=== PATIENT | female | born 1940 | race Caucasian/White ===

== ENCOUNTER → 2016-08-10 | Outpatient (CLI) | payer MEDICARE ==
[~2016-08-10] MED LIST: ANTIVERT25 MG PO; NKHM; ZOVIRAX800 MG PO
[2016-08-10 09:09] LABS: BASO % 0.2 % (0.0-1.0); EOS # 0.2 10*3/uL (0.0-0.4); EOS % 1.9 % (1.0-4.0); HEMOGLOBIN 14.1 g/dl (12.0-16.0); LYMPH # 2.2 10*3/uL (1.3-4.4); LYMPH % 26.2 % (27.0-41.0); MEAN CELL VOLUME 92.1 fl (81.0-99.0); MEAN CORPUSCULAR HGB 30.2 pg (27.0-31.0); MEAN CORPUSCULAR HGB CONC 32.8 g/dl (33.0-37.0); MEAN PLATELET VOLUME 11.8 fl (9.6-12.3); MONO # 0.4 10*3/uL (0.1-1.0); MONO % 4.5 % (3.0-9.0); NEUT # 5.5 10*3/uL (2.3-7.9); NEUT % 66.8 % (47.0-73.0); PLATELET COUNT AUTOMATED 73 10*3/uL (130-400); RED BLOOD COUNT 4.67 10*6/uL (4.10-5.10); RED CELL DISTRI WIDTH 14.6 % (0-14.5); WHITE BLOOD COUNT 8.3 10*3/uL (4.8-10.8)
== END | disposition home or self-care (01) ==
LOC: LAB 08:48
PROVIDERS: Internal Medicine Hematology & Oncology
DX: C18.9 Malignant neoplasm of colon, unspecified (principal); C55 Malignant neoplasm of uterus, part unspecified

== ENCOUNTER → 2016-11-08 | Outpatient (CLI) | payer MEDICARE ==
[2016-11-08 10:58] LABS: BASO % 0.4 % (0.0-1.0); EOS # 0.2 10*3/uL (0.0-0.4); HEMATOCRIT 41.7 % (37.0-47.0); LYMPH # 2.1 10*3/uL (1.3-4.4); LYMPH % 25.9 % (27.0-41.0); MEAN CELL VOLUME 93.3 fl (81.0-99.0); MEAN CORPUSCULAR HGB 31.3 pg (27.0-31.0); MEAN CORPUSCULAR HGB CONC 33.6 g/dl (33.0-37.0); MEAN PLATELET VOLUME 11.6 fl (9.6-12.3); MONO # 0.3 10*3/uL (0.1-1.0); MONO % 3.3 % (3.0-9.0); NEUT # 5.4 10*3/uL (2.3-7.9); PLATELET COUNT AUTOMATED 91 10*3/uL (130-400); RED BLOOD COUNT 4.47 10*6/uL (4.10-5.10); RED CELL DISTRI WIDTH 13.4 % (0-14.5); WHITE BLOOD COUNT 8.1 10*3/uL (4.8-10.8)
[2016-11-08 11:33] LABS: ALBUMIN 3.7 gm/dl (3.1-4.5); ALKALINE PHOSPHATASE 67 U/L (45-117); BILIRUBIN, TOTAL 0.7 mg/dl (0.2-1.0); BUN 9 mg/dl (7-24); CARBON DIOXIDE 29 mmol/L (21-32); CHLORIDE 106 mmol/L (98-107); EST GLOM FILT AFRICAN AMERICAN > 60 ml/min; GLUCOSE 91 mg/dL (65-99); POTASSIUM 4.2 mmol/L (3.5-5.1); SGOT/AST 12 IU/L (3-35); SGPT/ALT 22 U/L (12-78); SODIUM 144 mmol/L (136-145); TOTAL PROTEIN 6.6 gm/dL (6.4-8.2)
== END | disposition home or self-care (01) ==
LOC: LAB 10:35
PROVIDERS: Internal Medicine Hematology & Oncology
DX: C55 Malignant neoplasm of uterus, part unspecified (principal); C18.9 Malignant neoplasm of colon, unspecified; Z85.41 Personal history of malignant neoplasm of cervix uteri

== ENCOUNTER → 2017-02-04 | Outpatient (CLI) | payer MEDICARE ==
[2017-02-04 08:49] LABS: BASO % 0.1 % (0.0-1.0); EOS # 0.3 10*3/uL (0.0-0.4); EOS % 2.9 % (1.0-4.0); HEMOGLOBIN 13.6 g/dl (12.0-16.0); LYMPH # 1.9 10*3/uL (1.3-4.4); LYMPH % 21.6 % (27.0-41.0); MEAN CELL VOLUME 94.7 fl (81.0-99.0); MEAN CORPUSCULAR HGB 31.4 pg (27.0-31.0); MEAN CORPUSCULAR HGB CONC 33.2 g/dl (33.0-37.0); MONO # 0.3 10*3/uL (0.1-1.0); MONO % 3.9 % (3.0-9.0); NEUT # 6.1 10*3/uL (2.3-7.9); NEUT % 70.9 % (47.0-73.0); PLATELET COUNT AUTOMATED 79 10*3/uL (130-400); RED BLOOD COUNT 4.33 10*6/uL (4.10-5.10); RED CELL DISTRI WIDTH 14.3 % (0-14.5); WHITE BLOOD COUNT 8.6 10*3/uL (4.8-10.8)
== END | disposition home or self-care (01) ==
LOC: LAB 08:35
PROVIDERS: Internal Medicine Hematology & Oncology
DX: C18.9 Malignant neoplasm of colon, unspecified (principal); C55 Malignant neoplasm of uterus, part unspecified; C54.9 Malignant neoplasm of corpus uteri, unspecified; R53.81 Other malaise; R53.82 Chronic fatigue, unspecified; D69.59 Other secondary thrombocytopenia

== ENCOUNTER → 2017-03-01 | Outpatient (CLI) | payer MEDICARE | END | disposition home or self-care (01) | LOC: MAMMO 16:09 | DX: Z12.31 Encounter for screening mammogram for malignant neoplasm of breast (principal); C18.9 Malignant neoplasm of colon, unspecified; C55 Malignant neoplasm of uterus, part unspecified; R53.83 Other fatigue; R53.81 Other malaise; D69.59 Other secondary thrombocytopenia ==

== ENCOUNTER 2017-06-22 10:08 | Emergency (ER) | payer MEDICARE ==
[~2017-06-22] VITALS: Ht 152.4 cm; Wt 61.2 kg
[2017-06-22] MEDS ORDERED: VIBRAMYCIN100 MG PO (12:25)
[2017-06-22] MEDS ORDERED: DELTASONE20 M1 PO (12:25)
== END 2017-06-22 12:46 | disposition home or self-care (01) ==
LOC: ED 10:08
DX: J40 Bronchitis, not specified as acute or chronic (principal)

== ENCOUNTER → 2017-08-08 | Outpatient (CLI) | payer MEDICARE ==
[~2017-08-08] MED LIST changes: +DELTASONE20 M1 PO; +VIBRAMYCIN100 MG PO
[2017-08-08 10:32] LABS: BASO % 0.4 % (0.0-1.0); EOS # 0.2 10*3/uL (0.0-0.4); EOS % 3.3 % (1.0-4.0); HEMATOCRIT 39.9 % (37.0-47.0); HEMOGLOBIN 13.2 g/dl (12.0-16.0); LYMPH # 1.7 10*3/uL (1.3-4.4); LYMPH % 30.2 % (27.0-41.0); MEAN CELL VOLUME 93.4 fl (81.0-99.0); MEAN CORPUSCULAR HGB 30.9 pg (27.0-31.0); MEAN CORPUSCULAR HGB CONC 33.1 g/dl (33.0-37.0); MEAN PLATELET VOLUME 12.9 fl (9.6-12.3); MONO # 0.2 10*3/uL (0.1-1.0); MONO % 4.2 % (3.0-9.0); NEUT # 3.4 10*3/uL (2.3-7.9); NEUT % 61.4 % (47.0-73.0); PLATELET COUNT AUTOMATED 83 10*3/uL (130-400); RED BLOOD COUNT 4.27 10*6/uL (4.10-5.10); RED CELL DISTRI WIDTH 14.6 % (0-14.5); WHITE BLOOD COUNT 5.5 10*3/uL (4.8-10.8)
== END | disposition home or self-care (01) ==
LOC: LAB 09:59
PROVIDERS: Nurse Practitioner
DX: C18.9 Malignant neoplasm of colon, unspecified (principal); C55 Malignant neoplasm of uterus, part unspecified; D69.6 Thrombocytopenia, unspecified

== ENCOUNTER → 2017-12-19 | Outpatient (CLI) | payer MEDICARE ==
[2017-12-19 14:20] LABS: BASO % 0.3 % (0.0-1.0); EOS # 0.2 10*3/uL (0.0-0.4); EOS % 2.7 % (1.0-4.0); HEMATOCRIT 40.4 % (37.0-47.0); LYMPH # 1.5 10*3/uL (1.3-4.4); LYMPH % 25.7 % (27.0-41.0); MEAN CELL VOLUME 95.5 fl (81.0-99.0); MEAN CORPUSCULAR HGB 30.7 pg (27.0-31.0); MEAN CORPUSCULAR HGB CONC 32.2 g/dl (33.0-37.0); MEAN PLATELET VOLUME 13.3 fl (9.6-12.3); MONO # 0.3 10*3/uL (0.1-1.0); MONO % 4.9 % (3.0-9.0); NEUT # 3.9 10*3/uL (2.3-7.9); NEUT % 66.1 % (47.0-73.0); PLATELET COUNT AUTOMATED 86 10*3/uL (130-400); RED BLOOD COUNT 4.23 10*6/uL (4.10-5.10); RED CELL DISTRI WIDTH 14.3 % (0-14.5); WHITE BLOOD COUNT 5.9 10*3/uL (4.8-10.8)
== END | disposition home or self-care (01) ==
LOC: LAB 13:29
PROVIDERS: Internal Medicine Hematology & Oncology
DX: C18.9 Malignant neoplasm of colon, unspecified (principal); C55 Malignant neoplasm of uterus, part unspecified; D69.6 Thrombocytopenia, unspecified

== ENCOUNTER → 2018-03-02 | Outpatient (CLI) | payer MEDICARE ==
[~2018-03-02] MED LIST changes: +CEPHALEXIN500 M1 PO
[2018-03-02 11:12] LABS: BASO % 0.3 % (0.0-1.0); EOS # 0.3 10*3/uL (0.0-0.4); EOS % 2.7 % (1.0-4.0); HEMOGLOBIN 14.2 g/dl (12.0-16.0); LYMPH # 2.5 10*3/uL (1.3-4.4); LYMPH % 27.2 % (27.0-41.0); MEAN CORPUSCULAR HGB 31.7 pg (27.0-31.0); MEAN PLATELET VOLUME 11.7 fl (9.6-12.3); MONO # 0.4 10*3/uL (0.1-1.0); MONO % 3.8 % (3.0-9.0); NEUT % 65.7 % (47.0-73.0); PLATELET COUNT AUTOMATED 88 10*3/uL (130-400); RED BLOOD COUNT 4.48 10*6/uL (4.10-5.10); RED CELL DISTRI WIDTH 14.2 % (0-14.5); WHITE BLOOD COUNT 9.2 10*3/uL (4.8-10.8)
== END | disposition home or self-care (01) ==
LOC: LAB 09:45 → MAMMO 10:00
PROVIDERS: Internal Medicine Hematology & Oncology
DX: Z12.31 Encounter for screening mammogram for malignant neoplasm of breast (principal); C18.9 Malignant neoplasm of colon, unspecified; C55 Malignant neoplasm of uterus, part unspecified; D69.6 Thrombocytopenia, unspecified

== ENCOUNTER → 2018-03-27 | Outpatient (CLI) | payer MEDICARE | END | disposition home or self-care (01) | LOC: US 09:12 | DX: C18.9 Malignant neoplasm of colon, unspecified (principal); C55 Malignant neoplasm of uterus, part unspecified; I82.0 Budd-Chiari syndrome; D69.6 Thrombocytopenia, unspecified ==

== ENCOUNTER → 2018-03-31 | Outpatient (CLI) | payer MEDICARE | END | disposition home or self-care (01) | LOC: CT 08:47 | DX: D35.01 Benign neoplasm of right adrenal gland (principal); K86.89 Other specified diseases of pancreas; C18.9 Malignant neoplasm of colon, unspecified; D69.6 Thrombocytopenia, unspecified; R53.83 Other fatigue; Z90.710 Acquired absence of both cervix and uterus; Z85.41 Personal history of malignant neoplasm of cervix uteri ==

== ENCOUNTER → 2018-08-17 | Outpatient (CLI) | payer MEDICARE ==
[2018-08-17 11:34] LABS: BASO % 0.2 % (0.0-1.0); EOS # 0.3 10*3/uL (0.0-0.4); EOS % 2.9 % (1.0-4.0); HEMATOCRIT 47.3 % (37.0-47.0); HEMOGLOBIN 15.4 g/dl (12.0-16.0); LYMPH # 2.3 10*3/uL (1.3-4.4); LYMPH % 27.2 % (27.0-41.0); MEAN CELL VOLUME 96.3 fl (81.0-99.0); MEAN CORPUSCULAR HGB 31.4 pg (27.0-31.0); MEAN CORPUSCULAR HGB CONC 32.6 g/dl (33.0-37.0); MEAN PLATELET VOLUME 12.6 fl (9.6-12.3); MONO # 0.5 10*3/uL (0.1-1.0); MONO % 5.6 % (3.0-9.0); NEUT # 5.4 10*3/uL (2.3-7.9); NEUT % 63.6 % (47.0-73.0); PLATELET COUNT AUTOMATED 89 10*3/uL (130-400); RED BLOOD COUNT 4.91 10*6/uL (4.10-5.10); RED CELL DISTRI WIDTH 14.6 % (0-14.5); WHITE BLOOD COUNT 8.5 10*3/uL (4.8-10.8)
== END | disposition home or self-care (01) ==
LOC: LAB 11:19
PROVIDERS: Internal Medicine Hematology & Oncology
DX: C18.9 Malignant neoplasm of colon, unspecified (principal); C55 Malignant neoplasm of uterus, part unspecified; D69.6 Thrombocytopenia, unspecified

== ENCOUNTER → 2019-02-14 | Outpatient (CLI) | payer MEDICARE ==
[2019-02-14 11:50] LABS: BASO % 0.3 % (0.0-1.0); EOS # 0.3 10*3/uL (0.0-0.4); EOS % 3.9 % (1.0-4.0); HEMATOCRIT 41.8 % (37.0-47.0); HEMOGLOBIN 13.6 g/dl (12.0-16.0); LYMPH % 30.3 % (27.0-41.0); MEAN CELL VOLUME 97.7 fl (81.0-99.0); MEAN CORPUSCULAR HGB 31.8 pg (27.0-31.0); MEAN CORPUSCULAR HGB CONC 32.5 g/dl (33.0-37.0); MEAN PLATELET VOLUME 12.4 fl (9.6-12.3); MONO # 0.3 10*3/uL (0.1-1.0); MONO % 4.3 % (3.0-9.0); NEUT # 3.9 10*3/uL (2.3-7.9); NEUT % 60.9 % (47.0-73.0); PLATELET COUNT AUTOMATED 79 10*3/uL (130-400); RED BLOOD COUNT 4.28 10*6/uL (4.10-5.10); WHITE BLOOD COUNT 6.5 10*3/uL (4.8-10.8)
== END | disposition home or self-care (01) ==
LOC: LAB 11:30
PROVIDERS: Internal Medicine Hematology & Oncology
DX: C18.9 Malignant neoplasm of colon, unspecified (principal); C55 Malignant neoplasm of uterus, part unspecified; D69.6 Thrombocytopenia, unspecified

== ENCOUNTER → 2019-02-26 | Outpatient (CLI) | payer MEDICARE ==
[2019-02-26 11:57] LABS: BUN 9 mg/dl (7-24)
== END | disposition home or self-care (01) ==
LOC: LAB 11:17
PROVIDERS: Internal Medicine Hematology & Oncology
DX: C55 Malignant neoplasm of uterus, part unspecified (principal); D69.6 Thrombocytopenia, unspecified

== ENCOUNTER → 2019-03-01 | Outpatient (CLI) | payer MEDICARE | END | disposition home or self-care (01) | LOC: CT 09:00 | DX: C18.9 Malignant neoplasm of colon, unspecified (principal); C55 Malignant neoplasm of uterus, part unspecified; D69.6 Thrombocytopenia, unspecified; J90 Pleural effusion, not elsewhere classified; M47.816 Spondylosis without myelopathy or radiculopathy, lumbar region; I70.0 Atherosclerosis of aorta; M41.86 Other forms of scoliosis, lumbar region ==

== ENCOUNTER → 2019-04-10 | Outpatient (CLI) | payer MEDICARE | END | disposition home or self-care (01) | LOC: CARD 14:36 | DX: C18.9 Malignant neoplasm of colon, unspecified (principal); C55 Malignant neoplasm of uterus, part unspecified; D69.6 Thrombocytopenia, unspecified; Z79.899 Other long term (current) drug therapy ==

== ENCOUNTER → 2019-07-23 | Outpatient (CLI) | payer MEDICARE ==
[2019-07-23 11:29] LABS: BASO % 0.3 % (0.0-1.0); EOS # 0.2 10*3/uL (0.0-0.4); EOS % 3.5 % (1.0-4.0); HEMATOCRIT 44.9 % (37.0-47.0); HEMOGLOBIN 14.1 g/dl (12.0-16.0); LYMPH # 1.7 10*3/uL (1.3-4.4); LYMPH % 27.8 % (27.0-41.0); MEAN CELL VOLUME 97.4 fl (81.0-99.0); MEAN CORPUSCULAR HGB 30.6 pg (27.0-31.0); MEAN CORPUSCULAR HGB CONC 31.4 g/dl (33.0-37.0); MEAN PLATELET VOLUME 12.7 fl (9.6-12.3); MONO # 0.2 10*3/uL (0.1-1.0); MONO % 3.5 % (3.0-9.0); NEUT % 64.6 % (47.0-73.0); PLATELET COUNT AUTOMATED 86 10*3/uL (130-400); RED BLOOD COUNT 4.61 10*6/uL (4.10-5.10); RED CELL DISTRI WIDTH 14.5 % (0-14.5); WHITE BLOOD COUNT 6.3 10*3/uL (4.8-10.8)
== END | disposition home or self-care (01) ==
LOC: LAB 10:38 → MAMMO 11:30
PROVIDERS: Internal Medicine Hematology & Oncology
DX: Z12.31 Encounter for screening mammogram for malignant neoplasm of breast (principal); C18.9 Malignant neoplasm of colon, unspecified; C55 Malignant neoplasm of uterus, part unspecified; D69.6 Thrombocytopenia, unspecified

== ENCOUNTER → 2022-02-02 | Outpatient (CLI) | payer MEDICARE | END | disposition home or self-care (01) | LOC: RAD 11:34 | PROVIDERS: ATTEND Orthopaedic Surgery | DX: R22.42 Localized swelling, mass and lump, left lower limb (principal) ==

== ENCOUNTER 2024-09-13 16:01 | Inpatient (IN) | payer MEDICARE ==
[~2024-09-13] VITALS: Ht 152.4 cm; Wt 47.3 kg
[~2024-09-13 16:01] MED LIST changes: -DOXYCYCLINE HY100 M3 PO
[2024-09-13 16:24] VITALS: BP 127/60
[2024-09-13 16:57] LABS: HEMATOCRIT 39.8 % (37.0-47.0); MEAN CELL VOLUME 97.1 fl (81.0-99.0); MEAN CORPUSCULAR HGB 30.5 pg (27.0-31.0); MEAN CORPUSCULAR HGB CONC 31.4 g/dl (33.0-37.0); RED CELL DISTRI WIDTH 16.3 % (0-14.5); WHITE BLOOD COUNT 7.3 10*3/uL (4.8-10.8)
[2024-09-13 17:00] LABS: MANUAL DIFF REFLEX YES; PLATELET COUNT AUTOMATED 38 10*3/uL (130-400)
[2024-09-13 17:14] LABS: BUN 19 mg/dl (9-23); CHLORIDE 104 mmol/L (98-107); POTASSIUM 3.8 mmol/L (3.4-5.1)
[2024-09-13 17:18] LABS: OVALOCYTES FEW; PLATELET SUFFICIENCY LOW (NORMAL); TOTAL CELLS COUNTED 100 #CELLS
[2024-09-13] MEDS ORDERED: DOXYCYCLINE HY100 M3 PO (18:07)
[2024-09-13] MEDS ORDERED: BISACODYL 10 MG SUPP R PRN (18:25)
[2024-09-13] MEDS ORDERED: Ondansetron Hydrochloride 4 MG/2 ML VIAL IV PRN (18:25)
[2024-09-13] MEDS ORDERED: Magnesium Hydroxide 30 ML UDC PO PRN (18:25)
[2024-09-13] MEDS ORDERED: MORPHINE Sulfate 2 MG/ML SYR IV PRN (18:25)
[2024-09-13] MEDS ORDERED: BISACODYL 5 MG TAB PO PRN (18:25)
[2024-09-13] MEDS ORDERED: ACETAMINOPHEN 650 MG SUPP R PRN (18:25)
[2024-09-13] MEDS ORDERED: ACETAMINOPHEN 325 MG TAB PO PRN (18:25)
[2024-09-13] MEDS ORDERED: Acetaminophen/Hydrocodone 5 MG/325 MG TABLET PO PRN (18:25)
[2024-09-13 20:17] VITALS: BP 125/63
[2024-09-13 21:13] VITALS: BP 136/60
[2024-09-13] MEDS ORDERED: FUROSEMIDE 40 MG/4 ML VIAL IV SCH (21:30)
[2024-09-14] VITALS: BP 125/67
[2024-09-14 06:20] LABS: HEMATOCRIT 37.3 % (37.0-47.0); MEAN CELL VOLUME 97.4 fl (81.0-99.0); MEAN CORPUSCULAR HGB 31.1 pg (27.0-31.0); MEAN CORPUSCULAR HGB CONC 31.9 g/dl (33.0-37.0); PLATELET COUNT AUTOMATED 36 10*3/uL (130-400); RED BLOOD COUNT 3.83 10*6/uL (4.10-5.10); RED CELL DISTRI WIDTH 16.3 % (0-14.5); WHITE BLOOD COUNT 4.6 10*3/uL (4.8-10.8)
[2024-09-14 06:33] LABS: MANUAL DIFF REFLEX YES
[2024-09-14 07:02] LABS: BUN 19 mg/dl (9-23); CHLORIDE 101 mmol/L (98-107); CHOLESTEROL 103 mg/dL (<200); FREE T4 1.23 ng/dl (0.89-1.76); LDL CHOLESTEROL 55 mg/dL (9-159); POTASSIUM 4.4 mmol/L (3.4-5.1); TRIGLYCERIDES 64 mg/dl (<150)
[2024-09-14 08:00] VITALS: BP 131/63
[2024-09-14 08:20] LABS: OVALOCYTES FEW; PLATELET SUFFICIENCY LOW (NORMAL); ROULEAUX MODERATE; TOTAL CELLS COUNTED 100 #CELLS
[2024-09-14] MEDS ORDERED: Enoxaparin Sodium 40 MG/0.4 ML SYR SC SCH ×2 (10:00)
[2024-09-14] MEDS ORDERED: [UNRECOGNIZED DRUG - OTHER] ONE (10:21)
[2024-09-14] MEDS ORDERED: Lidocaine Hydrochloride 30 ML VIAL ONE (10:33)
[2024-09-14 12:00] VITALS: BP 123/52
[2024-09-14 13:40] LABS: BF LYMPHOCYTES 32 %; BF MACROPHAGES 59 %; BF MESOTHELIALS 2 %; BF NEUTROPHILS 7 %
[2024-09-14] MEDS ORDERED: Doxycycline Hyclate 100 MG in SODIUM CHLORIDE 0.9% 250 ML IV SCH (14:00)
[2024-09-14 16:00] VITALS: BP 114/50
[2024-09-14 20:00] VITALS: BP 132/57
[2024-09-14] MEDS ORDERED: GUAIFENESIN 600 MG TAB ER PO SCH (22:00)
[2024-09-15] VITALS: BP 104/52
[2024-09-15 05:34] LABS: BUN 22 mg/dl (9-23); CHLORIDE 100 mmol/L (98-107); POTASSIUM 3.8 mmol/L (3.4-5.1)
[2024-09-15 06:22] LABS: HEMATOCRIT 30.1 % (37.0-47.0); MEAN CELL VOLUME 98.4 fl (81.0-99.0); MEAN CORPUSCULAR HGB CONC 31.6 g/dl (33.0-37.0); RED BLOOD COUNT 3.06 10*6/uL (4.10-5.10); RED CELL DISTRI WIDTH 16.2 % (0-14.5); WHITE BLOOD COUNT 3.3 10*3/uL (4.8-10.8)
[2024-09-15 06:25] LABS: MANUAL DIFF REFLEX YES
[2024-09-15 06:26] LABS: PLATELET COUNT AUTOMATED 26 10*3/uL (130-400)
[2024-09-15 07:07] LABS: OVALOCYTES FEW; PLATELET SUFFICIENCY LOW (NORMAL); POLYCHROMASIA SLIGHT; TOTAL CELLS COUNTED 100 #CELLS
[2024-09-15 07:08] LABS: ROULEAUX SLIGHT
[2024-09-15 08:00] VITALS: BP 122/55
[2024-09-15] MEDS ORDERED: ASPIRIN ENTERIC COATED 81 MG TAB PO SCH (10:00)
[2024-09-15] MEDS ORDERED: CALCIUM CARBONATE/VITAMIN D3 500 MG/200 IU TABLET PO SCH (10:00)
[2024-09-15 12:00] VITALS: BP 122/57
[2024-09-15 16:00] VITALS: BP 118/62
[2024-09-15 20:00] VITALS: BP 128/53
[2024-09-16] VITALS: BP 108/45
[2024-09-16 06:22] LABS: HEMATOCRIT 31.2 % (37.0-47.0); MEAN CELL VOLUME 97.8 fl (81.0-99.0); MEAN CORPUSCULAR HGB CONC 31.7 g/dl (33.0-37.0); RED BLOOD COUNT 3.19 10*6/uL (4.10-5.10); RED CELL DISTRI WIDTH 16.1 % (0-14.5)
[2024-09-16 06:23] LABS: MANUAL DIFF REFLEX YES
[2024-09-16 06:25] LABS: PLATELET COUNT AUTOMATED 25 10*3/uL (130-400)
[2024-09-16 06:35] LABS: ALKALINE PHOSPHATASE 60 U/L (46-116); BUN 31 mg/dl (9-23); CHLORIDE 101 mmol/L (98-107); LDH 103 U/L (120-246); POTASSIUM 3.8 mmol/L (3.4-5.1); TOTAL PROTEIN 5.5 gm/dL (6.0-8.0)
[2024-09-16 06:42] LABS: SGPT/ALT < 7 U/L (5-49)
[2024-09-16 06:55] LABS: OVALOCYTES FEW; PLATELET SUFFICIENCY LOW (NORMAL); POLYCHROMASIA SLIGHT; TOTAL CELLS COUNTED 100 #CELLS
[2024-09-16 06:56] LABS: ROULEAUX SLIGHT
[2024-09-16 08:00] VITALS: BP 106/43
[2024-09-16 10:33] VITALS: BP 88/50
[2024-09-16 12:00] VITALS: BP 117/42
[2024-09-16 16:00] VITALS: BP 117/53
[2024-09-16 20:00] VITALS: BP 114/42
[2024-09-17] VITALS: BP 130/60
[2024-09-17 06:14] LABS: BUN 26 mg/dl (9-23); CHLORIDE 104 mmol/L (98-107); POTASSIUM 4.5 mmol/L (3.4-5.1)
[2024-09-17 06:23] LABS: HEMATOCRIT 30.3 % (37.0-47.0); MEAN CELL VOLUME 98.4 fl (81.0-99.0); MEAN CORPUSCULAR HGB 31.5 pg (27.0-31.0); RED BLOOD COUNT 3.08 10*6/uL (4.10-5.10); RED CELL DISTRI WIDTH 16.4 % (0-14.5); WHITE BLOOD COUNT 3.3 10*3/uL (4.8-10.8)
[2024-09-17 06:32] LABS: MANUAL DIFF REFLEX YES; PLATELET COUNT AUTOMATED 23 10*3/uL (130-400)
[2024-09-17 07:38] LABS: OVALOCYTES FEW; PLATELET SUFFICIENCY LOW (NORMAL); TOTAL CELLS COUNTED 100 #CELLS
[2024-09-17 08:00] VITALS: BP 102/50
[2024-09-17 09:45] VITALS: BP 128/60
[2024-09-17 12:00] VITALS: BP 118/50
[2024-09-17 16:00] VITALS: BP 111/53
[2024-09-17] MEDS ORDERED: METHYLPREDNISOLONE IV SCH (18:00)
[2024-09-17] MEDS ORDERED: methylPREDNISolone sod succ 125 MG VIAL IV SCH (18:00)
[2024-09-17 20:00] VITALS: BP 113/45
[2024-09-18] VITALS: BP 126/72
[2024-09-18 06:06] LABS: HEMATOCRIT 30.4 % (37.0-47.0); MEAN CELL VOLUME 97.4 fl (81.0-99.0); MEAN CORPUSCULAR HGB 30.8 pg (27.0-31.0); MEAN CORPUSCULAR HGB CONC 31.6 g/dl (33.0-37.0); RED BLOOD COUNT 3.12 10*6/uL (4.10-5.10); RED CELL DISTRI WIDTH 16.4 % (0-14.5); RETICULOCYTE % 1.16 % (0.50-2.50); WHITE BLOOD COUNT 2.8 10*3/uL (4.8-10.8)
[2024-09-18 06:56] LABS: ALKALINE PHOSPHATASE 63 U/L (46-116); BUN 29 mg/dl (9-23); CHLORIDE 105 mmol/L (98-107); LDH 96 U/L (120-246); POTASSIUM 4.8 mmol/L (3.4-5.1); SGPT/ALT 11 U/L (5-49); TOTAL PROTEIN 5.6 gm/dL (6.0-8.0)
[2024-09-18 07:19] LABS: MANUAL DIFF REFLEX YES; PLATELET COUNT AUTOMATED 22 10*3/uL (130-400)
[2024-09-18] MEDS ORDERED: CYANOCOBALAMIN 1,000 MCG/ML VIAL IM ONE (07:50)
[2024-09-18 08:00] VITALS: BP 144/52
[2024-09-18 08:07] LABS: HBsAG SCREEN Negative (Negative); HCV Ab Non Reactive (Non Reactive); HEP B CORE Ab, IgM Negative (Negative)
[2024-09-18 09:54] LABS: TOTAL CELLS COUNTED 100 #CELLS
[2024-09-18 09:55] LABS: PLATELET SUFFICIENCY LOW (NORMAL)
[2024-09-18 12:00] VITALS: BP 121/62
[2024-09-18 16:00] VITALS: BP 113/52
[2024-09-18] MEDS ORDERED: Water, Sterile 10 ML VIAL ONE (16:52)
[2024-09-18 20:00] VITALS: BP 125/52
[2024-09-19] VITALS: BP 114/54
[2024-09-19 07:20] LABS: HEMATOCRIT 29.4 % (37.0-47.0); MEAN CELL VOLUME 98.3 fl (81.0-99.0); MEAN CORPUSCULAR HGB 31.1 pg (27.0-31.0); MEAN CORPUSCULAR HGB CONC 31.6 g/dl (33.0-37.0); RED BLOOD COUNT 2.99 10*6/uL (4.10-5.10); RED CELL DISTRI WIDTH 16.6 % (0-14.5); WHITE BLOOD COUNT 5.6 10*3/uL (4.8-10.8)
[2024-09-19 07:46] LABS: BUN 34 mg/dl (9-23); CHLORIDE 104 mmol/L (98-107); POTASSIUM 4.3 mmol/L (3.4-5.1)
[2024-09-19 07:51] LABS: MANUAL DIFF REFLEX YES; PLATELET COUNT AUTOMATED 26 10*3/uL (130-400)
[2024-09-19 08:00] VITALS: BP 120/71; BP 160/85
[2024-09-19 08:16] LABS: TOTAL CELLS COUNTED 100 #CELLS
[2024-09-19 08:17] LABS: PLATELET SUFFICIENCY LOW (NORMAL)
[2024-09-19] MEDS ORDERED: MAGNESIUM SULFATE 50 ML IV ONE (09:10)
[2024-09-19] MEDS ORDERED: CYANOCOBALAMIN 1,000 MCG/ML VIAL IM SCH (10:00)
[2024-09-19 12:00] VITALS: BP 114/50
[2024-09-19 15:07] LABS: A/G RATIO 0.9 (0.7-1.7); ALBUMIN 2.5 g/dL (2.9-4.4); ALPHA-1-GLOBULIN 0.2 g/dL (0.0-0.4); ALPHA-2-GLOBULIN 0.3 g/dL (0.4-1.0); ANTI-DSDNA ANTIBODIES 1 IU/mL (0-9); BETA GLOBULIN 0.5 g/dL (0.7-1.3); GAMMA GLOBULIN 1.9 g/dL (0.4-1.8); GLOBULIN, TOTAL 2.8 g/dL (2.2-3.9)
[2024-09-19 16:00] VITALS: BP 125/55
[2024-09-19 20:00] VITALS: BP 115/55
[2024-09-20] VITALS: BP 108/44
[2024-09-20 06:13] LABS: BUN 41 mg/dl (9-23); CHLORIDE 105 mmol/L (98-107); POTASSIUM 4.7 mmol/L (3.4-5.1)
[2024-09-20 06:33] LABS: MEAN CELL VOLUME 99.3 fl (81.0-99.0); MEAN CORPUSCULAR HGB 31.5 pg (27.0-31.0); MEAN CORPUSCULAR HGB CONC 31.7 g/dl (33.0-37.0); RED BLOOD COUNT 3.02 10*6/uL (4.10-5.10); RED CELL DISTRI WIDTH 16.7 % (0-14.5); WHITE BLOOD COUNT 3.9 10*3/uL (4.8-10.8)
[2024-09-20 06:38] LABS: MANUAL DIFF REFLEX YES
[2024-09-20 06:40] LABS: PLATELET COUNT AUTOMATED 25 10*3/uL (130-400)
[2024-09-20 07:39] LABS: OVALOCYTES FEW; PLATELET SUFFICIENCY LOW (NORMAL); POLYCHROMASIA SLIGHT; SCHISTOCYTES FEW; TOTAL CELLS COUNTED 100 #CELLS
[2024-09-20 08:00] VITALS: BP 105/66
[2024-09-20] MEDS ORDERED: FUROSEMIDE 40 MG TAB PO SCH (10:00)
[2024-09-20 11:55] VITALS: BP 120/61
[2024-09-20 16:00] VITALS: BP 141/62
[2024-09-20 20:00] VITALS: BP 110/54
[2024-09-21] VITALS: BP 113/42
[2024-09-21 06:22] LABS: HEMATOCRIT 34.4 % (37.0-47.0); MEAN CORPUSCULAR HGB 31.4 pg (27.0-31.0); MEAN CORPUSCULAR HGB CONC 31.4 g/dl (33.0-37.0); RED BLOOD COUNT 3.44 10*6/uL (4.10-5.10); RED CELL DISTRI WIDTH 16.9 % (0-14.5); WHITE BLOOD COUNT 5.7 10*3/uL (4.8-10.8)
[2024-09-21 06:23] LABS: MANUAL DIFF REFLEX YES
[2024-09-21 06:25] LABS: PLATELET COUNT AUTOMATED 26 10*3/uL (130-400)
[2024-09-21 06:54] LABS: OVALOCYTES FEW; PLATELET SUFFICIENCY LOW (NORMAL); POLYCHROMASIA SLIGHT; SCHISTOCYTES FEW; TOTAL CELLS COUNTED 100 #CELLS
[2024-09-21 08:00] VITALS: BP 107/50
[2024-09-21 12:00] VITALS: BP 119/49
[2024-09-21 16:00] VITALS: BP 113/59
[2024-09-21 20:00] VITALS: BP 114/53
[2024-09-21] MEDS ORDERED: Doxycycline Hyclate 100 MG CAPSULE PO SCH (22:00)
[2024-09-22] VITALS: BP 120/27
[2024-09-22 06:11] LABS: HEMATOCRIT 32.2 % (37.0-47.0); MEAN CELL VOLUME 98.5 fl (81.0-99.0); MEAN CORPUSCULAR HGB 30.9 pg (27.0-31.0); MEAN CORPUSCULAR HGB CONC 31.4 g/dl (33.0-37.0); PLATELET COUNT AUTOMATED 31 10*3/uL (130-400); RED BLOOD COUNT 3.27 10*6/uL (4.10-5.10); WHITE BLOOD COUNT 4.7 10*3/uL (4.8-10.8)
[2024-09-22 07:28] LABS: MANUAL DIFF REFLEX YES
[2024-09-22 07:30] LABS: OVALOCYTES FEW; PLATELET SUFFICIENCY LOW (NORMAL); POLYCHROMASIA SLIGHT; TOTAL CELLS COUNTED 100 #CELLS
[2024-09-22 08:00] VITALS: BP 105/58
[2024-09-22] MEDS ORDERED: ASPIRIN ADULT L81 M2 PO (11:05)
[2024-09-22] MEDS ORDERED: DOXYCYCLINE MO100 MG PO (11:05)
[2024-09-22] MEDS ORDERED: LASIX20 MG PO (11:05)
== END 2024-09-22 13:55 | disposition home or self-care (01) | DRG 291 ==
LOC: ED 16:01 → EDHOLD 18:20 → 4E 18:20
PROVIDERS: Internal Medicine; Internal Medicine Critical Care Medicine; Physician Assistant; Physician Assistant Medical; Student in an Organized Health Care Education/Training Program; ADMIT Internal Medicine; ATTEND Internal Medicine
PROC: 0W9930Z Drainage of Right Pleural Cavity with Drainage Device, Percutaneous Approach (ICD-10-PCS; principal; 2024-09-14)
DX: I50.33 Acute on chronic diastolic (congestive) heart failure (principal); E43 Unspecified severe protein-calorie malnutrition; J91.8 Pleural effusion in other conditions classified elsewhere; D61.818 Other pancytopenia; J98.11 Atelectasis; D69.3 Immune thrombocytopenic purpura; R73.9 Hyperglycemia, unspecified; D72.819 Decreased white blood cell count, unspecified; E78.5 Hyperlipidemia, unspecified; R53.81 Other malaise; R16.1 Splenomegaly, not elsewhere classified; K76.89 Other specified diseases of liver; Z90.710 Acquired absence of both cervix and uterus; Z90.49 Acquired absence of other specified parts of digestive tract; Z85.038 Personal history of other malignant neoplasm of large intestine; Z85.42 Personal history of malignant neoplasm of other parts of uterus; Z80.0 Family history of malignant neoplasm of digestive organs; Z82.49 Family history of ischemic heart disease and other diseases of the circulatory system; Z68.22 Body mass index [BMI] 22.0-22.9, adult

== ENCOUNTER → 2024-09-13 | Outpatient (CLI) | payer MEDICARE ==
[~2024-09-13] MED LIST changes: +DOXYCYCLINE HY100 M3 PO
== END | disposition home or self-care (01) ==
LOC: RAD 12:17
PROVIDERS: ATTEND Nurse Practitioner Family
DX: R05.3 Chronic cough (principal)

== ENCOUNTER → 2024-11-15 | Outpatient (CLI) | payer MEDICARE ==
[~2024-11-15] MED LIST changes: +ASPIRIN ADULT L81 M2 PO; +DOXYCYCLINE HY100 M3 PO; +DOXYCYCLINE MO100 MG PO; +IOHEXOL 300 MG/ML 100 ML VIAL IV ONE; +LASIX20 MG PO
== END | disposition home or self-care (01) ==
LOC: CT 01:37
PROVIDERS: ATTEND Internal Medicine Hematology & Oncology
DX: C55 Malignant neoplasm of uterus, part unspecified (principal); C18.9 Malignant neoplasm of colon, unspecified; K76.0 Fatty (change of) liver, not elsewhere classified; R16.0 Hepatomegaly, not elsewhere classified; R16.1 Splenomegaly, not elsewhere classified; J98.11 Atelectasis; J90 Pleural effusion, not elsewhere classified; I25.10 Atherosclerotic heart disease of native coronary artery without angina pectoris; I86.8 Varicose veins of other specified sites; D69.6 Thrombocytopenia, unspecified; E27.8 Other specified disorders of adrenal gland